=== PATIENT | female | born 1950 | race Caucasian/White ===

== ENCOUNTER 2019-08-06 07:40 | Day surgery (SDC) | payer MEDICARE, BC ==
[2019-08-02 11:15] VITALS: BMI 28.3
[2019-08-06] MEDS ORDERED: Bupivacaine HCl 0.5%/Epinephrine 1:200,000/PF 30 ml Vial ONE (08:31)
[2019-08-06] MEDS ORDERED: Fentanyl 100 MCG/2 ML VIAL ONE ×3 (09:22→11:06)
--- NOTE | 2019-08-06 10:59 | OP ---
DATE OF PROCEDURE: 08/06/2019 ARCHITECT MARINE: Alberto Nayak PA-C INDICATION: Pain. DIAGNOSIS: Lumbar radiculopathy. PROCEDURES PERFORMED: Right L4-L5 hemilaminectomy, medial facetectomy, diskectomy. ANESTHESIA: General. DESCRIPTION OF PROCEDURE: The patient was brought into the operating room and placed under general anesthesia. She was flipped from the supine to prone position on the operating room table. A linear incision was planned over the L4-L5 segment. After prepping and draping and after an appropriate operative pause, the incision was created. The soft tissues were swept right of midline. A self-retaining retractor was placed and after obtaining an image with the C-arm, a high-speed cutting drill bit as well as 2, 3, and 4 mm Kerrisons were used to perform a laminectomy along the inferior aspect of L4 and superior aspect of L5. The laminectomy was extended laterally to encompass the medial aspect of the facet joint in order to adequately decompress the descending L5 nerve root. The wound was then irrigated. Hemostasis was maintained throughout. The wound was then closed in anatomic layers and a pressure dressing was applied. There were no known procedural complications. Job ID: [id number]
[2019-08-06] MEDS ORDERED: Rocuronium Bromide 10 MG/ML (10ML VIAL) ONE (13:48)
[2019-08-06] MEDS ORDERED: Glycopyrrolate 0.2 MG/ML 5 ML SYRINGE ONE (13:48)
[2019-08-06] MEDS ORDERED: Ketorolac Tromethamine 30 MG/ML VIAL ONE (13:48)
[2019-08-06] MEDS ORDERED: Ondansetron PF 4 MG/2 ML Vial ONE (13:48)
[2019-08-06] MEDS ORDERED: PROPOFOL 200 MG/20 ML VIAL ONE (13:48)
[2019-08-06] MEDS ORDERED: Dexamethasone 20 MG/5 ML VIAL ONE (13:48)
[2019-08-06] MEDS ORDERED: Lidocaine 1% PF 5 ML VIAL ONE (13:48)
--- NOTE | 2019-08-06 14:15 | RAD ---
EXAM: CHEST ONE VIEW HISTORY: Shortness of breath COMPARISON: 12/22/2018 FINDINGS: The cardiac silhouette and pulmonary vasculature is within normal limits. There is linear increased d ensity at the right lung base which may be related to either atelectasis or developing area of pneumonitis. Minimal atelectasis is present at the left lung base. The lungs are otherwise clear. The osseous structures are intact. No other interval change. IMPRESSION: Atelectasis versus developing pneumonitis in the right lung base. Follow-up PA and lateral chest x-ra y is recommended to ensure resolution.
--- NOTE | 2019-08-08 19:51 | EKG ---
Test Reason : STAT Blood Pressure : / mmHG Vent. Rate : 102 BPM Atrial Rate : 102 BPM P-R Int : 176 ms QRS Dur : 078 ms QT Int : 358 ms P-R-T Axes : 043 -08 037 degrees QTc Int : 466 ms Sinus tachycardia Possible Left atrial enlargement Borderline ECG When compared with ECG of 18-NOV-2015 13:42, No significant change was found Confirmed by BETH MCNULTY, SRossi ([id number]) on 08/08/2019 7:50:59 PM Referred By: MELO Confirmed By:DR. Skinny CAMPOS MD
== END 2019-08-06 15:30 | disposition home or self-care (01) ==
LOC: SDC 07:40
PROVIDERS: ATTEND Neurological Surgery
PROC: 01NB0ZZ Release Lumbar Nerve, Open Approach (ICD-10-PCS; principal; 2019-08-06)
DX: M51.16 Intervertebral disc disorders with radiculopathy, lumbar region (principal); M48.061 Spinal stenosis, lumbar region without neurogenic claudication; Z79.899 Other long term (current) drug therapy
CPT/HCPCS: 71045; 76000; 93005; 93010; J0670; J0690; J1100; J1885; J2001; J2405; J2704; J3010

== ENCOUNTER 2021-01-06 11:32 | Outpatient (CLI) | payer MEDICARE, BC ==
--- NOTE | 2021-01-06 13:03 | RAD ---
PA AND LATERAL CHEST: HISTORY: Dyspnea. COMPARISON: 04/17/2014 study. FINDINGS: Heart size and mediastinum are within normal limits. The lungs are clear of any infiltrative process . No significant bony findings. IMPRESSION: No active intrathoracic disease. Stable appearance to the chest. Some mildly increased interstitial changes appear chronic. POS: KATHRINE
== END 2021-01-06 11:33 | disposition home or self-care (01) ==
LOC: BICRAD 11:32
PROVIDERS: ATTEND Internal Medicine Critical Care Medicine
DX: R06.00 Dyspnea, unspecified (principal)
CPT/HCPCS: 71046

== ENCOUNTER 2021-10-13 08:48 | Outpatient (CLI) | payer MEDICARE, BC ==
[2021-10-13] MEDS ORDERED: Magnevist 469MG/ML 20 ML VIAL ONE (13:59)
== END 2021-10-13 08:49 | disposition home or self-care (01) ==
LOC: MRI 08:48
PROVIDERS: ATTEND Family Medicine
DX: R25.0 Abnormal head movements (principal); I67.82 Cerebral ischemia
CPT/HCPCS: 70553; 82565; A9579

== ENCOUNTER 2021-10-26 15:21 | Outpatient (CLI) | payer MEDICARE, BC | END 2021-10-26 15:22 | disposition home or self-care (01) | LOC: BICULT 15:21 | PROVIDERS: ATTEND Family Medicine | DX: R25.1 Tremor, unspecified (principal) | CPT/HCPCS: 93880 ==

== ENCOUNTER 2021-12-17 10:05 | Outpatient (CLI) | payer MEDICARE, BC | END 2021-12-17 10:06 | disposition home or self-care (01) | LOC: BICMAMMO 10:05 | PROVIDERS: ATTEND Family Medicine | DX: Z12.31 Encounter for screening mammogram for malignant neoplasm of breast (principal); Z13.820 Encounter for screening for osteoporosis; M81.0 Age-related osteoporosis without current pathological fracture; M85.851 Other specified disorders of bone density and structure, right thigh; M85.852 Other specified disorders of bone density and structure, left thigh | CPT/HCPCS: 77063; 77067; 77080 ==

== ENCOUNTER 2022-07-15 09:23 | Outpatient (CLI) | payer MEDICARE, BC | END 2022-07-15 09:24 | disposition home or self-care (01) | LOC: RAD 09:23 | PROVIDERS: ATTEND Internal Medicine Critical Care Medicine | DX: R91.1 Solitary pulmonary nodule (principal) | CPT/HCPCS: 71046 ==

== ENCOUNTER 2023-03-08 14:58 | Outpatient (CLI) | payer MEDICARE, BC | END 2023-03-08 14:59 | disposition home or self-care (01) | LOC: BICMAMMO 14:58 | PROVIDERS: ATTEND Family Medicine | DX: Z12.31 Encounter for screening mammogram for malignant neoplasm of breast (principal) | CPT/HCPCS: 77063; 77067 ==

== ENCOUNTER 2023-08-11 13:45 | Outpatient (CLI) | payer MEDICARE, BC | END 2023-08-11 13:46 | disposition home or self-care (01) | LOC: RAD 13:45 | PROVIDERS: ATTEND Internal Medicine Critical Care Medicine | DX: R06.00 Dyspnea, unspecified (principal) | CPT/HCPCS: 71046 ==

== ENCOUNTER 2024-03-14 10:58 | Outpatient (CLI) | payer MEDICARE, BC | END 2024-03-14 10:59 | disposition home or self-care (01) | LOC: BICMAMMO 10:58 | PROVIDERS: ATTEND Family Medicine | DX: Z12.31 Encounter for screening mammogram for malignant neoplasm of breast (principal) | CPT/HCPCS: 77063; 77067 ==

== ENCOUNTER 2024-08-20 10:52 | Outpatient (CLI) | payer MEDICARE, BC | END 2024-08-20 10:53 | disposition home or self-care (01) | LOC: RAD 10:52 | PROVIDERS: ATTEND Internal Medicine Critical Care Medicine | DX: R06.00 Dyspnea, unspecified (principal) | CPT/HCPCS: 71046 ==